=== PATIENT | male | born 1965 | race Caucasian/White ===

== ENCOUNTER 2017-01-10 16:36 | Emergency (ER) | payer OTHER, MEDICAID ==
[~2017-01-10] VITALS: Ht 170.2 cm; Wt 80.0 kg
[2017-01-10] MEDS ORDERED: DIVAL250 PO (16:41)
[2017-01-10] MEDS ORDERED: KETOROLAC 60MG/2ML VIAL IM ONE (18:15)
[2017-01-10] MEDS ORDERED: HYDROCODONE/ACETAMINOPHEN 5/325MG TABLET PO ONE (19:15)
[2017-01-10 20:10] VITALS: BP 137/88
== END 2017-01-10 21:00 | disposition home or self-care (01) ==
LOC: ER 16:51
DX: S52.502A Unspecified fracture of the lower end of left radius, initial encounter for closed fracture (principal); F20.9 Schizophrenia, unspecified; F31.9 Bipolar disorder, unspecified; V13.4XXA Pedal cycle driver injured in collision with car, pick-up truck or van in traffic accident, initial encounter; Y93.89 Activity, other specified; Y92.488 Other paved roadways as the place of occurrence of the external cause
CPT/HCPCS: 29125; 73090; 73110; 73130; 96372; 99284; J1885